=== PATIENT | female | born 1965 | race Two or more races ===

== ENCOUNTER 2024-09-06 09:27 | Day surgery (SDC) | payer OTHER ==
[2024-09-06] MEDS ORDERED: DIPHENHYDRAMINE HCL 50 MG/ML VIAL 1ML IV ONE (14:15)
[2024-09-06] MEDS ORDERED: fentaNYL CITRATE 50 MCG/ML AMPUL IV PUSH ONE (14:15)
[2024-09-06] MEDS ORDERED: MIDAZOLAM HCL 2 MG/2 ML VIAL IV ONE (14:15)
[2024-09-06] MEDS ORDERED: ONDANSETRON HCL 2 MG/ML VIAL IV ONE (14:15)
== END 2024-09-06 15:05 | disposition home or self-care (01) ==
LOC: AMB-ENDOS 09:27
PROVIDERS: ATTEND Colon & Rectal Surgery
DX: K62.5 Hemorrhage of anus and rectum (principal); K63.5 Polyp of colon; K57.30 Diverticulosis of large intestine without perforation or abscess without bleeding; K64.8 Other hemorrhoids; Z88.6 Allergy status to analgesic agent

== ENCOUNTER → 2024-09-11 | Day surgery (SDC) | payer OTHER ==
[2024-08-25 11:23] LABS: BASO % 0.6 % (0.1-1.2); EOS # 0.19 (0.04-0.54); EOS % 2.2 % (0.7-7.0); HEMATOCRIT 41.9 % (34.1-44.9); HEMOGLOBIN 13.8 g/dL (11.2-15.7); LYMPH # 1.82 (1.18-3.74); LYMPH % 20.6 % (19.3-53.1); MEAN CORPUSCULAR HEMOGLOBIN 27.8 pg (25.6-32.2); MONO # 0.48 (0.24-0.82); MONO % 5.4 % (4.7-12.5); NEUT # 6.25 (1.56-6.13); NEUT % 70.7 % (34.0-71.1); PLATELET COUNT 272 K/uL (163-369); RED BLOOD COUNT 4.97 M/uL (3.93-5.22); RED CELL DISTRIBUTION WIDTH 13.5 % (11.6-14.4)
[2024-08-25 11:30] LABS: PH,URINE 5.5 (5.0-8.0); URINE APPEARANCE Clear; URINE BILIRRUBIN Negative (NEGATIVE); URINE BLOOD Negative; URINE COLOR Yellow; URINE GLUCOSE Negative (NEGATIVE); URINE KETONE Negative (NEGATIVE); URINE LEUKOCYTE Small; URINE NITRATE Negative; URINE PROTEIN Negative (NEGATIVE); URINE UROBILINOGEN 0.2 E.U./dl
[2024-08-25 11:34] LABS: URINE BACTERIA 3522.6 uL (0.0-1933); URINE EPITHELIAL CELLS 108.3 uL (0.0-38.8); URINE RBC 6.1 uL (0.0-20.8); URINE WBC 46.8 uL (0.0-23.2)
[2024-08-25 11:55] LABS: PARTIAL THROMBOPLASTIN TIME 27.6 SECONDS (22.0-34.0); PROTHROMBIN TIME 10.9 SECONDS (9.0-11.5)
[2024-08-25 12:18] LABS: ALBUMIN 4.1 gm/dL (3.4-5.0); BILIRUBIN TOTAL 0.41 mg/dL (0.3-1.2); CALCIUM 9.9 mg/dL (8.5-10.1); CREATININE SERUM 0.82 mg/dL (0.55-1.02); GFR 71.11; GLOBULINA 3.5 G/DL (2.4-3.5); POTASSIUM 5.04 mEq/L (3.5-5.1); TOTAL PROTEIN 7.6 gm/dL (6.4-8.2)
[2024-08-25 12:24] LABS: TYPE CELLS SQUAMOUS
[2024-08-25 12:58] VITALS: BP 145/84
[~2024-09-11] VITALS: Ht 167.6 cm; Wt 90.7 kg
[~2024-09-11] MED LIST: BUPIVACAINE LIPOSOME/PF 266 MG/20 ML VIAL IJ ONE; HEMOSTATIC MATRIX 1 KIT KIT TOP ONE; METRONIDAZOLE/SODIUM CHLORIDE 500 MG/100 ML PIGGYBACK IV ONE; POVIDONE-IODINE 118 ML BOTT TOP ONE; TRIAMCINOLONE ACETONIDE 40 MG/ML VIAL IJ ONE
== END | disposition home or self-care (01) ==
LOC: ADM 08-25 09:30 → CIR.AMB 09-01 09:30
PROVIDERS: ATTEND Colon & Rectal Surgery
DX: K64.1 Second degree hemorrhoids (principal); K64.4 Residual hemorrhoidal skin tags; L91.0 Hypertrophic scar